=== PATIENT | male | born 1975 | race Caucasian/White ===

== ENCOUNTER 2016-10-22 07:55 | Emergency (ER) | payer BC ==
--- NOTE | 2016-10-22 18:34 | ER ---
ADMIT: 10/22/2016 RM/LOC: ER [facility] MR#: [id number] [id number] NGOC MENDEZ [address] [place] [address] Emergency Room Report SEX: M AGE: 41 : 1975 DATE: 10/22/2016 HISTORY OF PRESENT ILLNESS: A 41-year-old white male, coming in with left flank pain. Feels kind of like his stones. CT scan did not show anything except stones in the kidney, not in the ureter and then a small pulmonary nodule that needed followup. I spoke to him and his about this. We are going to discharge him home. He has had stones before. This could also be a very small stone that is not seen, that he had passed. We had given him pain medications, he is comfortable now. He will be discharged. I gave him 30 [place] just in case he was having more renal stone, I said he does, I stressed the need to follow up with Urology for this as well as follow up with Primary Care, and the pulmonary nodule as well. CONDITION ON DISCHARGE: Good. Greg Schumacher MD/ rama JOB #: [id number] CC: Greg Schumacher MD, Attending Physician UNKNOWN, Family Physician MD Frankie Peña MD
--- NOTE | 2016-10-26 17:07 | ER ---
ADMIT: 10/22/2016 RM/LOC: ER [facility] MR#: [id number] [id number] NGOC MENDEZ [address] [place] [address] Emergency Room Report SEX: M AGE: 41 : 1975 DATE: 10/22/2016 ADDENDUM: This is a 41-year-old white male coming in with left flank pain thinking he had another stone. CBC, chemistry, and urine are normal. His CT did not show any stone in his ureter. He had some in his renal, but nothing acute. His pain essentially was gone here with treatment. DIAGNOSES: 1. Renal stones. 2. Flank pain, resolved. Needs follow up in the future. CONDITION ON DISCHARGE: Improved. Greg Schumacher MD/ rama JOB #: [id number] CC: Greg Schumacher MD, Attending Physician UNKNOWN, Family Physician
== END 2016-10-22 11:22 | disposition home or self-care (01) ==
LOC: ER 07:55
DX: N20.0 Calculus of kidney (principal); F17.210 Nicotine dependence, cigarettes, uncomplicated; Z79.899 Other long term (current) drug therapy

== ENCOUNTER → 2016-10-31 | Outpatient (CLI) | payer BC | END | disposition home or self-care (01) | LOC: RAD.S 07:51 | DX: R91.8 Other nonspecific abnormal finding of lung field (principal); J43.9 Emphysema, unspecified; F17.200 Nicotine dependence, unspecified, uncomplicated ==